=== PATIENT | female | born 1985 | race Caucasian/White ===

== ENCOUNTER → 2024-07-27 | Outpatient (CLI) | payer BC, SELFPAY ==
[2024-07-27 10:14] LABS: Hematocrit 40.2 % (37-47); Hemoglobin 13.5 g/dL (12.0-15.0); Mean Corp Hgb Conc 33.6 g/dL (32-36); Mean Corpuscular Volume 92.2 fL (81-99); Mean Platelet Vol. 11.7 fl (6.2-12.0); Platelet Count 236 K/mm3 (150-450); RBC Distribution Width CV 11.7 % (11.6-14.6); RBC Distribution Width SD 39.6 fl (35.1-43.9); Red Blood Count 4.36 M/mm3 (4.2-5.4); White Blood Count 8.2 K/mm3 (4.4-11.0)
[2024-07-27 13:03] LABS: Thyroid Stim Hormone (TSH) 0.956 uIU/mL (0.300-4.200)
[2024-07-27 18:25] LABS: Cholesterol 201 mg/dL (<=200); High Density Lipoprotein 70 mg/dL; Low Density Lipoprotein Calc. 107 mg/dL; Triglycerides 120 mg/dL; Very Low Density Lipoprotein 24 mg/dL (5-40); cholesterol:hdl ratio screen 2.88
[2024-07-27 18:34] LABS: ALB/GLOB Ratio 1.5 RATIO (0.9-2.4); AST(SGOT) 20 U/L (<=31); Alanine Aminotransfer ALT/SGPT 12 U/L (<=34); Albumin, Serum 4.3 g/dL (3.5-5.0); Alkaline Phosphatase 91 U/L (35-104); Anion Gap 8 (5-15); BUN 16 mg/dL (4-19); BUN/Creat Ratio 19.4 RATIO (10-20); Calcium,Total 9.4 mg/dL (7.6-11.0); Carbon Dioxide 26.4 mmol/L (21.0-32.0); Chloride 103 mmol/L (98-108); EST Glomerular Filtration Rate 96 (>60); Globulin 2.8 g/dL (2.2-4.2); Glucose 94 mg/dL (70-99); Potassium 4.3 mmol/L (3.3-5.1); Sodium Level 138 mmol/L (133-145); Total Bilirubin 0.54 mg/dL (0.00-1.30)
== END | disposition home or self-care (01) ==
PROVIDERS: Referring Provider Internal Medicine Cardiovascular Disease; Visit Provider Internal Medicine Cardiovascular Disease
DX: R06.09 Other forms of dyspnea (principal); R00.2 Palpitations
CPT/HCPCS: 36415; 80053; 80061; 84443; 85027

== ENCOUNTER → 2024-07-31 | Outpatient (CLI) | payer BC, SELFPAY | END | disposition home or self-care (01) | LOC: PSN 08:13 | PROVIDERS: Referring Provider Internal Medicine Cardiovascular Disease; Visit Provider Internal Medicine Cardiovascular Disease | DX: R06.09 Other forms of dyspnea (principal); R00.2 Palpitations | CPT/HCPCS: 93225; 93226 ==

== ENCOUNTER → 2024-08-31 | Outpatient (CLI) | payer BC, SELFPAY ==
--- NOTE | 2024-08-31 06:10 | ECHOD_ITS ---
Reason For Study Reason For Study: Palpitations Procedure This was a 2D Doppler, Color Flow transthoracic echocardiogram. Exam performed in department. Left Ventricle Normal size and thickness. The LV systolic function is normal. EF is 60 %. No evidence for diastolic dysfunction. Right Ventricle Normal right ventricle. A moderator band is seen in the right ventricle. Atria The left and right atria are normal. Mitral Valve Trivial mitral valve insufficiency. Tricuspid Valve Normal tricuspid valve. Aortic Valve Trisinus/trileaflet aortic valve. Pulmonic Valve The pulmonic valve is not well visualized. Great Vessels Normal sized aortic root. Pericardium/Pleural No pericardial effusion. MMode/2D Measurements & Calculations LVIDd: 4.8 cm IVSd: 0.76 cm Ao root diam: 2.7 cm LVIDs: 3.4 cm LVPWd: 0.80 cm RVDd: 3.6 cm FS: 29.1 % LAV(MOD-bp): 43.8 ml LVAd ap4: 30.1 cm2 SV(MOD-sp4): 48.1 ml LAV(MOD-bp) Indexed: 19.5 ml/m2 LVLd ap4: 9.1 cm SI(MOD-sp4): 21.4 ml/m2 LAV(MOD-sp2): 29.7 ml EDV(MOD-sp4): 80.9 ml LAV(MOD-sp4): 47.0 ml EDV(sp4-el): 84.3 ml LVAs ap4: 17.4 cm2 LVLs ap4: 7.6 cm ESV(MOD-sp4): 32.8 ml ESV(sp4-el): 33.8 ml EF(MOD-sp4): 59.5 % EF(sp4-el): 59.9 % SV(sp4-el): 50.4 ml LA A4 area: 19.3 cm2 LA dimension(2D): 3.8 cm RA A4 area: 16.4 cm2 TAPSE: 2.2 cm Time Measurements MV dec time: 0.18 sec Doppler Measurements & Calculations MV E max rafa: 102.8 cm/sec Lat Peak E' Rafa: 15.5 cm/sec Med Peak E' Rafa: 10.0 cm/sec MV A max rafa: 72.5 cm/sec E/E' lat: 6.6 E/E' med: 10.3 MV E/A: 1.4 MV V2 max: 120.8 cm/sec MV P1/2t max rafa: 120.8 cm/sec Ao V2 max: 151.2 cm/sec MV max P.8 mmHg MV P1/2t: 65.7 msec Ao max P.1 mmHg MV V2 mean: 69.1 cm/sec Ao V2 mean: 104.1 cm/sec MV mean P.2 mmHg MV dec slope: 538.6 cm/sec2 Ao mean P.0 mmHg MV V2 VTI: 36.5 cm MVA(P1/2t): 3.3 cm2 Ao V2 VTI: 34.0 cm AV (velocity ratio): 0.84 LV V1 max: 128.9 cm/sec PA V2 max: 103.7 cm/sec LV V1 max P.7 mmHg PA V2 mean: 76.2 cm/sec LV V1 mean P.5 mmHg LV V1 mean: 87.5 cm/sec LV V1 VTI: 28.5 cm ECHO/Echo Complete Interpretation Summary The LV systolic function is normal. EF is 60 %. No evidence for diastolic dysfunction. Ordering Physician: Joyce Mondragon Referring Physician: Joyce Mondragon Performed By: Bob Bullock [facility]
--- NOTE | 2024-08-31 09:48 | STRESSREP_ITS ---
Stress Test Report Date: 08/31/2024 Procedure: Exercise tolerance test/imaging study Indications: Palpitations Consent: Per the patient Procedure: The patient exercised on a [place] protocol for 5 minutes and 46 seconds achieving a peak heart rate of 169 bpm (93% predicted maximal heart rate) with a peak blood pressure 194/82 mmHg and a peak MET capacity of 7.2 METs. The baseline ECG demonstrated sinus rhythm. The peak exercise ECG failed to show any diagnostic ischemic changes. Frequent PVCs noted during exercise and in recovery. The functional capacity was considered average. There was no complaint of chest discomfort during exercise or recovery. The examination was discontinued secondary to target heart rate being achieved, fatigue and dyspnea. The patient was injected with 15.0 mCi of technetium 99m Cardiolite and subsequently rest SPECT Cardiolite nuclear imaging was obtained in the horizontal long, vertical long, and short axis views. Post-exercise, the patient was injected with 45.0 mCi of technetium 99m Cardiolite and subsequently stress SPECT Cardiolite nuclear imaging was obtained in the horizontal long, vertical long, and short axis views. A gated Cardiolite study at peak stress was obtained. Rest and stress SPECT Cardiolite nuclear imaging status post realignment, normalization, and attenuation correction, demonstrates the appearance of relative uniform tracer uptake and myocardial perfusion appearing within normal limits. There is end systolic thickening and brightening. The gated Cardiolite study demonstrates myocardial thickening and inward wall motion. The reported LVEF is 67%. Impression: 1. Technically adequate (percent predicted maximal heart rate greater than 85%) exercise tolerance test 2. Peak exercise ECG with no diagnostic ischemic changes 3. PVCs noted during exercise and in recovery 4. Rest and stress SPECT Cardiolite nuclear imaging demonstrate relative uniform tracer uptake and myocardial perfusion appearing within normal limits. 5. The gated Cardiolite study reports an LVEF of 67%. This note was generated with [employer] software. It may contain incorrect words, spelling, and punctuation that were not noted in checking the note before signing.
== END | disposition home or self-care (01) ==
PROVIDERS: Referring Provider Internal Medicine Cardiovascular Disease; Visit Provider Internal Medicine Cardiovascular Disease
DX: R00.2 Palpitations (principal); R06.09 Other forms of dyspnea
CPT/HCPCS: 78452; 93017; 93306; A9500; A4216